=== PATIENT | female | born 1955 | race Caucasian/White ===

== ENCOUNTER 2016-10-31 18:10 | Emergency (ER) | payer OTHER ==
[~2016-10-31] VITALS: Ht 167.6 cm; Wt 114.5 kg
[2016-10-31 19:01] LABS: MCH 29.2 PG (29.0-34.0); MCV 85.9 FL (83-99); MEAN PLAT.VOLUME 9.9 uM^3 (9.5-12.4); PLATELET COUNT 347 K/uL (156-360); RBC DIS.WIDTH-CV 12.9 % (11.8-14.6); RBC DIS.WIDTH-SD 39.9 % (39-53); RED BLOOD COUNT 4.89 M/uL (3.80-5.20); WHITE BLOOD COUNT 12.8 K/uL (4.1-10.2)
[2016-10-31 19:12] LABS: CHLORIDE 104 mEq/L (99-109); POTASSIUM 4.1 mEq/L (3.7-5.4); SODIUM 138 mEq/L (136-147)
[2016-10-31 19:14] LABS: GLUCOSE 199 mg/dL (70-99)
[2016-10-31 19:15] LABS: ANION GAP 11 MEQ/L (2-14)
[2016-10-31 19:17] LABS: GFR ESTIMATE (CALCULATED) > 59 mL/min/
[2016-10-31 19:18] LABS: UREA NITROGEN (BUN) 11 mg/dL (9-23)
[2016-10-31 19:56] LABS: ADD MIUA? YES; BILIRUBIN NEGATIVE; BLOOD MODERATE; COLOR YELLOW ((YELLOW)); GLUCOSE (STRIP) NEGATIVE; KETONES NEGATIVE; LEUKOCYTES NEGATIVE; NITRITE NEGATIVE; PROTEIN (STRIP) NEGATIVE; SPECIFIC GRAVITY 1.008 (1.000-1.030); UROBILINOGEN 0.2 MG/DL (0.2-1.0)
[2016-10-31 20:00] LABS: BACTERIA NONE SEEN /HPF; EPITHELIAL CELLS RARE /HPF; MUCUS TRACE /LPF; RED BLOOD CELLS 0-5 /HPF (0-5); UCUL ADDED? NO; WHITE BLOOD CELLS 0-5 /HPF (0-5)
[2016-10-31 20:14] LABS: CASTS NONE SEEN /LPF; CRYSTALS NONE SEEN
[2016-10-31] MEDS ORDERED: PERCOCET 5/31 TABLET PO (20:57)
[2016-10-31] MEDS ORDERED: ZOFRAN ODT4 MG PO (20:57)
[2016-10-31 21:17] VITALS: BP 131/81
== END 2016-10-31 21:17 | disposition home or self-care (01) ==
LOC: EME 18:10 → EXP 18:10
DX: N20.1 Calculus of ureter (principal); E11.9 Type 2 diabetes mellitus without complications; I10 Essential (primary) hypertension; Z87.442 Personal history of urinary calculi; Z91.040 Latex allergy status; Z87.891 Personal history of nicotine dependence
CPT/HCPCS: 74176; 80048; 81003; 85027; 99281; 99285; J1885; J2270; J2405; J7030